=== PATIENT | male | born 2000 | race Caucasian/White ===

== ENCOUNTER 2024-02-27 18:49 | Emergency (ER) | payer OTHER, SELFPAY ==
[2024-02-27 18:48] VITALS: BP 129/83; PULSE 88; RESP 16; TEMP 36.6; O2SAT 99; BMI 28.0
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
[2024-02-27 19:14] VITALS: O2SAT 99
[2024-02-27] MEDS: ondansetron 2 mg/ML SDV 2 mL 4 MG IVP (19:14)
[2024-02-27] MEDS: morphine 4 mg/mL SDV 1 mL IVP (19:14)
[2024-02-27 19:21] VITALS: BP 122/75; PULSE 75; RESP 16; O2SAT 97
[2024-02-27] MEDS: iohexol 350 mg/mL 500 mL Btl (per mL) IV (19:30)
[2024-02-27 19:44] LABS: Amphetamines Screen Urine Negative (Negative); Barbiturates Screen Urine Negative (Negative); Benzodiazepines Screen Urine Negative (Negative); Cocaine Screen Urine Negative (Negative); Opiate Screen Urine Negative (Negative); PCP Screen Urine Negative (Negative); THC Screen Urine Negative (Negative)
[2024-02-27 20:39] VITALS: BP 120/68; PULSE 72; RESP 16; O2SAT 97
[2024-02-27 21:23] VITALS: BP 128/81; PULSE 70; RESP 16; O2SAT 97
[2024-02-27 22:25] VITALS: BP 124/80; PULSE 93; RESP 16; O2SAT 95
[2024-02-27] MEDS: cephALEXin 500 mg Capsule PO (23:42)
[2024-02-27] MEDS: lidocaine-epi 1% PF 1:200,000 30 mL SDV INJECTION (23:42)
== END 2024-02-27 23:46 | disposition home or self-care (01) ==
PROVIDERS: Emergency Provider Emergency Medicine
DX: S01.81XA Laceration without foreign body of other part of head, initial encounter (principal); V64.5XXA Driver of heavy transport vehicle injured in collision with heavy transport vehicle or bus in traffic accident, initial encounter
CPT/HCPCS: 12013; 70496; 70498; 80306; 96374; 96375; 99285; J2270; J2405; Q9967